=== PATIENT | male | born 1995 | race Hispanic/Latino ===

== ENCOUNTER 2017-05-07 12:26 | Emergency (ER) | payer SELFPAY ==
[2017-05-07] MEDS ORDERED: Lidocaine 1% PF 5 ML VIAL ONE (14:03)
[2017-05-07] MEDS ORDERED: Adacel (T-DAP) 0.5 ML VIAL ONE (14:13)
[2017-05-07] MEDS ORDERED: Bacitracin Zinc 1 Packet ONE (14:32)
== END 2017-05-07 14:46 | disposition home or self-care (01) ==
LOC: ERS 12:26
DX: S51.811A Laceration without foreign body of right forearm, initial encounter (principal); F90.9 Attention-deficit hyperactivity disorder, unspecified type; R48.0 Dyslexia and alexia; X99.0XXA Assault by sharp glass, initial encounter
CPT/HCPCS: 12002; 90471; 90715; J2001

== ENCOUNTER 2018-12-28 15:50 | Emergency (ER) | payer SELFPAY ==
[2018-12-28] MEDS ORDERED: Fluorescein Opthalmic Strip ONE (15:55)
[2018-12-28] MEDS ORDERED: Adacel (T-DAP) 0.5 ML SYRINGE ONE (16:18)
== END 2018-12-28 16:21 | disposition home or self-care (01) ==
LOC: SCSER 15:50
DX: S05.61XA Penetrating wound without foreign body of right eyeball, initial encounter (principal); F90.9 Attention-deficit hyperactivity disorder, unspecified type; W22.8XXA Striking against or struck by other objects, initial encounter
CPT/HCPCS: 90471; 90715

== ENCOUNTER 2018-12-28 20:11 | Observation (INO) | payer SELFPAY ==
[2018-12-28] MEDS ORDERED: Dextrose 5% in Water 1,000 ML IV SCH (21:45)
[2018-12-28] MEDS: Cefepime 2 GM in Sodium Chloride 0.9% 100 ML IVPB SCH (22:16)
[2018-12-28] MEDS: Gentamicin Ophth Soln 0.3% 5 ml Bottle R EYE SCH ×2 (22:23→23:23)
[2018-12-28 22:47] VITALS: BMI 24.4
[2018-12-28] MEDS: Vancomycin HCl 500 MG in Sodium Chloride 0.9% 100 ML IVPB SCH (23:23)
[2018-12-29] MEDS: Gentamicin Ophth Soln 0.3% 5 ml Bottle R EYE SCH ×7 (02:55→16:23)
[2018-12-29] MEDS: Vancomycin HCl 500 MG in Sodium Chloride 0.9% 100 ML IVPB SCH (04:59)
[2018-12-29] MEDS: Cefepime 2 GM in Sodium Chloride 0.9% 100 ML IVPB SCH (05:00)
[2018-12-29] MEDS ORDERED: Fentanyl 100 MCG/2 ML VIAL SLOW IVP SCH (08:00)
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
[2018-12-29] MEDS ORDERED: SODIUM CHLORIDE 0.9% FS SCH (08:15)
[2018-12-29] MEDS ORDERED: VANCOMYCIN HCL FS SCH ×2 (08:15→08:30)
[2018-12-29] MEDS ORDERED: Fentanyl 100 MCG/2 ML VIAL ONE ×3 (10:18→13:49)
[2018-12-29] MEDS ORDERED: Promethazine HCl 25 MG/ML VIAL IM PRN (13:51)
[2018-12-29] MEDS ORDERED: Promethazine HCl 25 MG/ML VIAL SLOW IVP PRN (13:51)
[2018-12-29] MEDS ORDERED: Ondansetron HCl/PF 4 MG/2 ML Vial IVP PRN (13:51)
[2018-12-29] MEDS ORDERED: Acetaminophen/Codeine 30-300mg Tablet PO PRN (14:26)
[2018-12-29 14:47] VITALS: BP 127/84; TEMP 97.4
[2018-12-29] MEDS ORDERED: Cefepime 2 GM in Sodium Chloride 0.9% 100 ML IVPB SCH (15:00)
[2018-12-29] MEDS ORDERED: Vancomycin HCl 500 MG in Sodium Chloride 0.9% 100 ML IVPB SCH (16:00)
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
== END 2018-12-29 16:25 | disposition left against medical advice (07) ==
LOC: SURG B 20:23
PROVIDERS: ADMIT Ophthalmology; ATTEND Ophthalmology
PROC: 08Q8XZZ Repair Right Cornea, External Approach (ICD-10-PCS; principal; 2018-12-29)
PROC: 08QC3ZZ Repair Right Iris, Percutaneous Approach (ICD-10-PCS; 2018-12-29)
DX: S05.21XA Ocular laceration and rupture with prolapse or loss of intraocular tissue, right eye, initial encounter (principal); W22.8XXA Striking against or struck by other objects, initial encounter
CPT/HCPCS: 96361; 96365; 96366; 96367; 96375; G0378; J0692; J3010; J3370; J3490

== ENCOUNTER 2020-12-12 12:25 | Outpatient (CLI) | payer SELFPAY ==
[2020-12-12 20:55] LABS: SARS-CoV-2 PCR by NAA Not Detected (NotDetected)
== END 2020-12-12 12:26 | disposition home or self-care (01) ==
LOC: LABBT 12:25
PROVIDERS: ATTEND Orthopaedic Surgery
DX: Z01.812 Encounter for preprocedural laboratory examination (principal); T85.848A Pain due to other internal prosthetic devices, implants and grafts, initial encounter; Z20.822 Contact with and (suspected) exposure to COVID-19
CPT/HCPCS: 87635; U0003; U0005

== ENCOUNTER 2020-12-16 11:45 | Day surgery (SDC) | payer OTHER ==
[2020-12-15 10:22] VITALS: BMI 24.4
[2020-12-16] MEDS ORDERED: Fentanyl 100 MCG/2 ML VIAL ONE ×2 (13:01→13:41)
[2020-12-16] MEDS ORDERED: Midazolam HCl 2 mg/2 ml Vial ONE (13:01)
[2020-12-16] MEDS ORDERED: Bupivacaine 0.25% HCL 30 ML VIAL ONE (13:06)
[2020-12-16] MEDS ORDERED: EPINEPHrine 1 MG/ML AMP ONE (13:06)
[2020-12-16] MEDS ORDERED: Bupivacaine PF 0.5% 30 ML VIAL ONE (13:06)
[2020-12-16] MEDS ORDERED: Ondansetron PF 4 MG/2 ML Vial ONE (13:31)
[2020-12-16] MEDS ORDERED: Lidocaine 1% PF 5 ML VIAL ONE (13:31)
[2020-12-16] MEDS ORDERED: PHENYLEPHRINE-NS 100 MCG/ML 10 ML SYRINGE ONE (13:31)
[2020-12-16] MEDS ORDERED: PROPOFOL 200 MG/20 ML VIAL ONE (13:31)
[2020-12-16] MEDS ORDERED: Dexamethasone 20 MG/5 ML VIAL ONE (13:31)
[2020-12-16] MEDS ORDERED: ePHEDrine Sulfate 50 MG/10 ML VIAL ONE (13:31)
[2020-12-16] MEDS ORDERED: HYDROcodone/Acetaminophen 5/325 mg Tablet ONE (15:31)
== END 2020-12-16 15:55 | disposition home or self-care (01) ==
LOC: SDC 11:45
PROVIDERS: ATTEND Orthopaedic Surgery
PROC: 0XP70YZ Removal of Other Device from Left Upper Extremity, Open Approach (ICD-10-PCS; principal; 2020-12-16)
DX: T84.84XA Pain due to internal orthopedic prosthetic devices, implants and grafts, initial encounter (principal); Z79.899 Other long term (current) drug therapy
CPT/HCPCS: 76000; J0171; J0690; J1100; J2250; J2405; J2704; J3010; S0020

== ENCOUNTER → 2022-07-27 | Day surgery (SDC) | payer OTHER ==
[2022-07-23 15:58] VITALS: BMI 26.7
== END | disposition home or self-care (01) ==
LOC: SDC 08:50
PROVIDERS: ATTEND Orthopaedic Surgery Hand Surgery
DX: T84.84XA Pain due to internal orthopedic prosthetic devices, implants and grafts, initial encounter (principal); G89.29 Other chronic pain; F17.210 Nicotine dependence, cigarettes, uncomplicated; M19.132 Post-traumatic osteoarthritis, left wrist; M24.032 Loose body in left wrist; Z53.20 Procedure and treatment not carried out because of patient's decision for unspecified reasons; Z79.899 Other long term (current) drug therapy; Y79.3 Surgical instruments, materials and orthopedic devices (including sutures) associated with adverse incidents

== ENCOUNTER 2022-08-23 12:08 | Day surgery (SDC) | payer OTHER ==
[2022-08-20 13:44] VITALS: BMI 26.7
[2022-08-23] MEDS ORDERED: Bacitracin Zinc Ointment 30 gm TUBE ONE (13:03)
[2022-08-23] MEDS ORDERED: Neomycin-Polymyxin 1 ML AMP ONE (13:03)
[2022-08-23] MEDS ORDERED: Bupivacaine PF 0.5% 30 ML VIAL ONE (13:03)
[2022-08-23] MEDS ORDERED: CEFAZOLIN 2 GM VIAL ONE (13:22)
[2022-08-23] MEDS ORDERED: Sodium Chloride 0.9% 100 ML ONE (13:22)
[2022-08-23] MEDS ORDERED: Midazolam HCl 2 mg/2 ml Vial ONE (13:46)
[2022-08-23] MEDS ORDERED: fentaNYL PF 100 MCG/2 ML SYRINGE ONE (13:46)
[2022-08-23] MEDS ORDERED: PROPOFOL 200 MG/20 ML VIAL ONE (14:23)
[2022-08-23] MEDS ORDERED: ePHEDrine 50 MG/ML VIAL ONE (14:23)
[2022-08-23] MEDS ORDERED: Lidocaine 1% PF 5 ML VIAL ONE (14:23)
[2022-08-23] MEDS ORDERED: Dexamethasone 20 MG/5 ML VIAL ONE (14:23)
[2022-08-23] MEDS ORDERED: Ondansetron PF 4 MG/2 ML Vial ONE (14:23)
[2022-08-23] MEDS ORDERED: Fentanyl 100 MCG/2 ML VIAL ONE (15:32)
[2022-08-23] MEDS ORDERED: Ketorolac Tromethamine 30 MG/ML VIAL ONE (15:52)
== END 2022-08-23 16:47 | disposition home or self-care (01) ==
LOC: SDC 12:08
PROVIDERS: ATTEND Orthopaedic Surgery Hand Surgery
PROC: 0PP Upper Bones, Removal (ICD-10-PCS; principal; 2022-08-23)
PROC: 0PPJ04Z Removal of Internal Fixation Device from Left Radius, Open Approach (ICD-10-PCS; principal; 2022-08-23)
DX: T84.84XA Pain due to internal orthopedic prosthetic devices, implants and grafts, initial encounter (principal); Z79.899 Other long term (current) drug therapy; Y79.3 Surgical instruments, materials and orthopedic devices (including sutures) associated with adverse incidents
CPT/HCPCS: J1100; J1885; J2250; J2405; J2704; J3010; J3490; S0020